=== PATIENT | female | born 1985 | race African-American/Black ===

== ENCOUNTER 2020-01-22 20:01 | Emergency (ER) | payer SELFPAY ==
[~2020-01-22] VITALS: Ht 170.2 cm; Wt 74.8 kg
[2020-01-22 21:06] LABS: Urine Bacteria FEW /hpf (None Seen); Urine Blood Negative /uL (Negative); Urine Mucus FEW (None Seen); Urine Specific Gravity 1.002 (1.001-1.035); Urine WBC 4 /hpf (0 - 5)
[2020-01-22 21:46] VITALS: BP 124/62
== END 2020-01-22 21:45 | disposition home or self-care (01) ==
LOC: ER 20:01
DX: N39.0 Urinary tract infection, site not specified (principal); H66.92 Otitis media, unspecified, left ear
CPT/HCPCS: 81001; 81025